=== PATIENT | female | born 1970 | race Hispanic/Latino ===

== ENCOUNTER 2018-02-22 14:55 | Emergency (ER) | payer OTHER ==
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
== END 2018-02-22 17:41 | disposition home or self-care (01) ==
LOC: ER 14:55
DX: S39.012A Strain of muscle, fascia and tendon of lower back, initial encounter (principal); V43.52XA Car driver injured in collision with other type car in traffic accident, initial encounter; Y92.219 Unspecified school as the place of occurrence of the external cause
CPT/HCPCS: 99282

== ENCOUNTER 2020-07-20 13:16 | Observation (INO) | payer OTHER ==
--- NOTE | 2020-07-20 15:01 | RAD REPORT ---
EXAM DESCRIPTION: US - Abdomen Exam Limited - 07/20/2020 2:55 pm CLINICAL HISTORY: r/o gallbladder;Abd pain Abdominal pain COMPARISON: Abdomen Exam Complete dated 12/30/2016 FINDINGS: The gallbladder demonstrates small stones and gallbladder sludge. No pericholecystic fluid or gallbladder wall thickening. The common bile duct is upper limit of normal measuring 6 mm. The liver demonstrates no findings of intrahepatic biliary dilatation. IMPRESSION: Cholelithiasis and gallbladder sludge suspected. No evidence of acute cholecystitis.
[2020-07-20 15:06] LABS: Urine Blood Trace-intact (Negative); Urine Glucose Negative (Negative); Urine Protein Negative (Negative); Urine Specific Gravity 1.015 (1.005-1.030); Urine pH 6.5 (5.0-7.0)
[2020-07-20] MEDS ORDERED: MORPHINE 2 MG/ML SYR ONE (15:12)
[2020-07-20] MEDS ORDERED: ONDANSETRON 4 MG/2 ML VIAL ONE (15:12)
[2020-07-20] MEDS ORDERED: NA CHLORIDE 0.9% 1,000 ML ONE (15:13)
[2020-07-20] MEDS ORDERED: FAMOTIDINE 20 MG/2 ML VIAL IV ONE (15:13)
--- NOTE | 2020-07-20 15:23 | RAD REPORT ---
EXAM DESCRIPTION: RAD - Chest Single View - 07/20/2020 3:14 pm CLINICAL HISTORY: COUGH Chest pain. COMPARISON: No comparisons FINDINGS: Portable technique limits examination quality. Linear subsegmental atelectasis in the right mid lung. The lungs are otherwise clear. The heart is no rmal in size. No displaced fractures.
[2020-07-20] MEDS: NA CHLORIDE 0.9% 1,000 ML IV SCH (15:30)
[2020-07-20 15:42] LABS: Basophils % 0.4 % (0-1.3); Hematocrit 40.2 % (36.0-45.0); Lymphocytes % 35.4 % (15.3-44.8); MPV 8.2 fL (7.6-11.3)
[2020-07-20 15:45] LABS: Protime INR 1.06
[2020-07-20 16:10] LABS: ALT/SGPT 35 U/L (12-78); AST/SGOT 16 U/L (15-37); Albumin 3.5 g/dL (3.4-5.0); Alkaline Phosphatase 80 U/L (45-117); BUN Blood Urea Nitrogen 10 mg/dL (7-18); Bicarbonate 28 mmol/L (21-32); Bilirubin Direct < 0.1 mg/dL (0-0.2); Bilirubin Total 0.5 mg/dL (0.2-1.0); Glucose Level 93 mg/dL (74-106); Lipase 113 U/L (73-393); Magnesium 2.2 mg/dL (1.8-2.4); NT PRO-BNP 27 pg/mL (<125); Potassium 3.6 mmol/L (3.5-5.1); Protein, Total 7.6 g/dL (6.4-8.2); Sodium Level 141 mmol/L (136-145); Troponin (Emerg Dept Use Only) < 0.02 ng/mL (0.0-0.045)
[2020-07-20] MEDS ORDERED: PIPER/TAZO/NS 3.375gm 3.375 GM/100 ML BAG ONE (16:12)
[2020-07-20 16:13] LABS: Urine Specific Gravity/Preg 1.015 (1.005-1.030)
--- NOTE | 2020-07-20 16:40 | ER ---
Nurse's Notes [facility] Name: Diana Michael Age: 49 yrs Sex: Female : 1970 Arrival Date: 07/20/2020 Time: 13:21 Bed 18 Private MD: Diagnosis: Cholelithiasis;Vomiting;Abdominal tenderness;Cholecystitis Presentation: 07/20 13:42 Chief complaint: Patient states: RUQ pain with N/V that began 4 days ago. Is worse when ss eating. Coronavirus screen: Client denies travel out of the [place] in the last 14 days. Ebola Screen: Patient denies exposure to infectious person. Patient denies travel to an Ebola-affected area in the 21 days before illness onset. Initial Sepsis Screen: Does the patient meet any 2 criteria? No. Patient's initial sepsis screen is negative. Does the patient have a suspected source of infection? No. Patient's initial sepsis screen is negative. Risk Assessment: Do you want to hurt yourself or someone else? Patient reports no desire to harm self or others. Onset of symptoms was July 16, 2020. 13:42 Method Of Arrival: Ambulatory ss 13:42 Acuity: THONG 3 ss Historical: - Allergies: 13:45 No Known Allergies; ss - Home Meds: 13:45 None [Active]; ss - PMHx: 13:45 None; ss - PSHx: 13:45 Tubal ligation; ; ss - Immunization history:: Adult Immunizations up to date. - Social history:: Smoking status: Patient denies any tobacco usage or history of. - Family history:: not pertinent. Screenin:34 Abuse screen: Denies threats or abuse. Nutritional screening: No deficits noted. vg1 Tuberculosis screening: No symptoms or risk factors identified. Fall Risk No fall in past 12 months (0 pts). No secondary diagnosis (0 pts). IV access (20 points). Ambulatory Aid- None/Bed Rest/Nurse Assist (0 pts). Gait- Normal/Bed Rest/Wheelchair (0 pts) Mental Status- Oriented to own ability (0 pts). Total Rojas Fall Scale indicates No Risk (0-24 pts). Assessment: 15:10 General: Appears in no apparent distress. comfortable, Behavior is calm, cooperative. vg1 Pain: Complains of pain in right upper quadrant Pain currently is 8 out of 10 on a pain scale. Neuro: Level of Consciousness is awake, alert, obeys commands, Oriented to person, place, time, situation. Cardiovascular: Patient's skin is warm and dry. Rhythm is sinus rhythm. Respiratory: Airway is patent Respiratory effort is even, unlabored. GI: Bowel sounds present X 4 quads. Abd is soft X 4 quads Abdomen is tender to palpation in right upper quadrant. : No signs and/or symptoms were reported regarding the genitourinary system. EENT: No signs and/or symptoms were reported regarding the EENT system. Derm: Skin is intact, is healthy with good turgor. Musculoskeletal: Circulation, motion, and sensation intact. 15:10 GI: Reports nausea, vomiting, Patient currently denies diarrhea, Parent/caregiver vg1 reports the patient having BM was this morning and 'normal'. 20:32 Reassessment: attempted to call report. vg1 Vital Signs: 13:42 BP 127 / 78; Pulse 80; Resp 16; Temp 97.9(TE); Pulse Ox 98% on R/A; Weight 96.16 kg; Height 5 ft. 2 in. (157.48 cm); Pain 8/10; 15:31 BP 125 / 98; Pulse 78; Resp 16; Pulse Ox 98% on R/A; vg1 16:00 BP 107 / 62; Pulse 75; Resp 16; Pulse Ox 99% on R/A; vg1 17:00 BP 109 / 54; Pulse 82; Resp 16; Pulse Ox 100% on R/A; vg1 18:00 BP 150 / 84; Pulse 74; Resp 16; Pulse Ox 98% on R/A; vg1 19:00 BP 102 / 62; Pulse 76; Resp 18; Pulse Ox 100% on R/A; vg1 20:00 BP 101 / 83; Pulse 82; Resp 14; Temp 98.2(O); Pulse Ox 98% on R/A; vg1 13:42 Body Mass Index 38.77 (96.16 kg, 157.48 cm) ED Course: 13:21 Patient arrived in ED. mr 13:44 Triage completed. ss 13:45 Arm band placed on right wrist. 14:41 Ender Barron MD is Attending Physician. [facility] 14:46 Freida Nelson RN is Primary Nurse. vg1 14:54 US Abdomen Limited In Process Unspecified. EDMS 15:06 Urine collected: clean catch specimen, cloudy. vg1 15:14 XRAY Chest (1 view) In Process Unspecified. EDMS 15:15 EKG done, by ED staff, reviewed by Freida Nelson RN. vg1 15:31 Initial lab(s) drawn, by in, sent to lab. Inserted saline lock: 20 gauge in right vg1 antecubital area, using aseptic technique. Blood collected. 15:34 Patient has correct armband on for positive identification. Placed in gown. Bed in low vg1 position. Call light in reach. Side rails up X 1. 16:32 Felipe Child MD is Hospitalizing Provider. [facility] 18:06 Patient moved back from [facility]. vg1 20:50 No provider procedures requiring assistance completed. Patient admitted, IV remains in vg1 place. Administered Medications: 15:30 Drug: NS 0.9% 1000 ml Route: IV; Rate: 125 ml/hr; Site: right antecubital; vg1 20:51 Follow up: IV Status: Infusion continued upon admission vg1 15:30 Drug: Zofran (Ondansetron) 4 mg Route: IVP; Site: right antecubital; vg1 18:09 Follow up: Response: No adverse reaction vg1 15:30 Drug: Pepcid (famotidine) 20 mg Route: IVP; Site: right antecubital; vg1 18:10 Follow up: Response: No adverse reaction vg1 15:31 Drug: morphine 2 mg Route: IVP; Site: right antecubital; vg1 18:09 Follow up: Response: No adverse reaction; Pain is decreased vg1 16:18 Drug: Zosyn 3.375 grams Route: IVPB; Infused Over: 60 mins; Site: right antecubital; vg1 18:09 Follow up: IV Status: Completed infusion; IV Intake: 100ml vg1 Intake: 18:09 IV: 100ml; Total: 100ml. vg1 Outcome: 16:39 Decision to Hospitalize by Provider. [facility] 18:06 Admitted to ER Hold. Please see [facility] for further documentation. vg1 20:50 Admitted to Tele accompanied by tech, via wheelchair, room 220, with chart, Report vg1 called to JULIEN Bustos 20:50 Condition: stable 20:50 Instructed on the need for admit. 21:30 Patient left the ED. iw Signatures: Dispatcher [employer] EDEnder Ramires MD MD cha Rivera, Hollie Raina Castro, RN Grace Jimenez, RN RN Freida Bailey, JULINE RN vg1
--- NOTE | 2020-07-20 16:40 | EDPHYS ---
Physician Documentation [facility] Name: Diana Michael Age: 49 yrs Sex: Female : 1970 Arrival Date: 07/20/2020 Time: 13:21 Bed 18 Private MD: ED Physician Ender Barron HPI: 07/20 15:17 This 49 yrs old Female presents to ER via Ambulatory with complaints of mani Abdominal Pain, Vomiting. 15:17 The patient presents to the emergency department with nausea, that is mild, abdominal mani pain. Onset: The symptoms/episode began/occurred 3 day(s) ago. Possible causes: gallstones. The symptoms are aggravated by food , The symptoms are alleviated by nothing. remaining still. Associated signs and symptoms: The patient has no apparent associated signs or symptoms. Severity of symptoms: At their worst the symptoms were mild moderate in the emergency department the symptoms are unchanged. The patient has experienced similar episodes in the past, multiple times. Historical: - Allergies: 13:45 No Known Allergies; ss - Home Meds: 13:45 None [Active]; ss - PMHx: 13:45 None; ss - PSHx: 13:45 Tubal ligation; ; ss - Immunization history:: Adult Immunizations up to date. - Social history:: Smoking status: Patient denies any tobacco usage or history of. - Family history:: not pertinent. ROS: 15:17 Constitutional: Negative for fever, chills, and weight loss, Eyes: Negative for injury, mani pain, redness, and discharge, ENT: Negative for injury, pain, and discharge, Neck: Negative for injury, pain, and swelling, Cardiovascular: Negative for chest pain, palpitations, and edema, Respiratory: Negative for shortness of breath, cough, wheezing, and pleuritic chest pain, Back: Negative for injury and pain, : Negative for injury, bleeding, discharge, and swelling, MS/Extremity: Negative for injury and deformity, Skin: Negative for injury, rash, and discoloration, Neuro: Negative for headache, weakness, numbness, tingling, and seizure, Psych: Negative for depression, anxiety, suicide ideation, homicidal ideation, and hallucinations, Allergy/Immunology: Negative for hives, rash, and allergies, Endocrine: Negative for neck swelling, polydipsia, polyuria, polyphagia, and marked weight changes, Hematologic/Lymphatic: Negative for swollen nodes, abnormal bleeding, and unusual bruising. 15:17 Abdomen/GI: Positive for abdominal pain, of the epigastric area and right upper quadrant. Exam: 15:17 Constitutional: This is a well developed, well nourished patient who is awake, alert, mani and in no acute distress. Head/Face: Normocephalic, atraumatic. Eyes: Pupils equal round and reactive to light, extra-ocular motions intact. Lids and lashes normal. Conjunctiva and sclera are non-icteric and not injected. Cornea within normal limits. Periorbital areas with no swelling, redness, or edema. ENT: Nares patent. No nasal discharge, no septal abnormalities noted. Tympanic membranes are normal and external auditory canals are clear. Oropharynx with no redness, swelling, or masses, exudates, or evidence of obstruction, uvula midline. Mucous membranes moist. Neck: Trachea midline, no thyromegaly or masses palpated, and no cervical lymphadenopathy. Supple, full range of motion without nuchal rigidity, or vertebral point tenderness. No Meningismus. Chest/axilla: Normal chest wall appearance and motion. Nontender with no deformity. No lesions are appreciated. Cardiovascular: Regular rate and rhythm with a normal S1 and S2. No gallops, murmurs, or rubs. Normal PMI, no JVD. No pulse deficits. Respiratory: Lungs have equal breath sounds bilaterally, clear to auscultation and percussion. No rales, rhonchi or wheezes noted. No increased work of breathing, no retractions or nasal flaring. Back: No spinal tenderness. No costovertebral tenderness. Full range of motion. Pelvic Exam: Normal external genitalia. Speculum exam with closed cervical os, no discharge or bleeding noted. Bimanual exam with normal adnexa, no adnexal or cervical motion tenderness. Normal uterus. Female : Normal external genitalia. Skin: Warm, dry with normal turgor. Normal color with no rashes, no lesions, and no evidence of cellulitis. MS/ Extremity: Pulses equal, no cyanosis. Neurovascular intact. Full, normal range of motion. Neuro: Awake and alert, GCS 15, oriented to person, place, time, and situation. Cranial nerves II-XII grossly intact. Motor strength 5/5 in all extremities. Sensory grossly intact. Cerebellar exam normal. Normal gait. Psych: Awake, alert, with orientation to person, place and time. Behavior, mood, and affect are within normal limits. 15:17 Abdomen/GI: Inspection: abdomen appears normal, Bowel sounds: normal, Palpation: moderate abdominal tenderness, in the epigastric area and right upper quadrant, Liver: tenderness, Hernia: not appreciated. 15:21 ECG was reviewed by the Attending Physician. [facility] Vital Signs: 13:42 BP 127 / 78; Pulse 80; Resp 16; Temp 97.9(TE); Pulse Ox 98% on R/A; Weight 96.16 kg; ss Height 5 ft. 2 in. (157.48 cm); Pain 8/10; 15:31 BP 125 / 98; Pulse 78; Resp 16; Pulse Ox 98% on R/A; vg1 16:00 BP 107 / 62; Pulse 75; Resp 16; Pulse Ox 99% on R/A; vg1 17:00 BP 109 / 54; Pulse 82; Resp 16; Pulse Ox 100% on R/A; vg1 18:00 BP 150 / 84; Pulse 74; Resp 16; Pulse Ox 98% on R/A; vg1 19:00 BP 102 / 62; Pulse 76; Resp 18; Pulse Ox 100% on R/A; vg1 20:00 BP 101 / 83; Pulse 82; Resp 14; Temp 98.2(O); Pulse Ox 98% on R/A; vg1 13:42 Body Mass Index 38.77 (96.16 kg, 157.48 cm) MDM: 14:41 Patient medically screened. [facility] 15:20 Differential diagnosis: Nonspecific abd pain, gastritis, cholecystitis, pancreatitis. [facility] Data reviewed: vital signs, nurses notes, lab test result(s), EKG, radiologic studies, MRI, ultrasound. Data interpreted: laboratory monitor: rate is 80 beats/min, rhythm is regular, Pulse oximetry: on room air is 98 %. Test interpretation: by ED physician or midlevel provider: ECG, plain radiologic studies. Counseling: I had a detailed discussion with the patient and/or guardian regarding: the historical points, exam findings, and any diagnostic results supporting the discharge/admit diagnosis, lab results, radiology results. 07/20 14:42 Order name: Basic Metabolic Panel; Complete Time: 16:14 mani 07/20 14:42 Order name: CBC with Diff; Complete Time: 16:01 [facility] 07/20 14:42 Order name: LFT's; Complete Time: 16:14 [facility] 07/20 14:42 Order name: Magnesium; Complete Time: 16:14 [facility] 07/20 14:42 Order name: NT PRO-BNP; Complete Time: 16:14 [facility] 07/20 14:42 Order name: PT-INR; Complete Time: 16:01 [facility] 07/20 14:42 Order name: Troponin (emerg Dept Use Only); Complete Time: 16:14 [facility] 07/20 14:42 Order name: Lipase; Complete Time: 16:14 [facility] 07/20 15:05 Order name: Urine Dipstick-Ancillary; Complete Time: 15:07 [facility] 07/20 15:11 Order name: Urine --Ancillary (enter results) 07/20 15:12 Order name: Urine --Ancillary; Complete Time: 16:14 [facility] 07/20 16:57 Order name: Urinalysis [facility] 07/20 16:57 Order name: CBC with Automated Diff [facility] 07/20 16:57 Order name: CBC with Automated Diff [facility] 07/20 13:48 Order name: US Abdomen Limited; Complete Time: 15:07 07/20 14:42 Order name: XRAY Chest (1 view); Complete Time: 16:01 [facility] 07/20 14:42 Order name: EKG; Complete Time: 14:43 [facility] 07/20 15:19 Order name: Cholangiogram [facility] 07/20 16:57 Order name: NPO [facility] 07/20 16:57 Order name: Comprehensive Metabolic Panel [facility] 07/20 16:57 Order name: Comprehensive Metabolic Panel [facility] 07/20 17:08 Order name: COVID-19 : Document "Date of Symptom Onset" if Symptomatic. 07/20 18:14 Order name: CORONAVIRUS [facility] 07/20 18:54 Order name: SARS-COV-2 RT PCR [facility] 07/20 14:42 Order name: Cardiac monitoring; Complete Time: 15:30 [facility] 07/20 14:42 Order name: EKG - Nurse/Tech; Complete Time: 15:30 [facility] 07/20 14:42 Order name: IV Saline Lock; Complete Time: 15:30 [facility] 07/20 14:42 Order name: Labs collected and sent; Complete Time: 15:29 [facility] 07/20 14:42 Order name: O2 Per Protocol; Complete Time: 15:06 [facility] 07/20 14:42 Order name: O2 Sat Monitoring; Complete Time: 15:06 [facility] 07/20 14:42 Order name: Urine Dipstick-Ancillary (obtain specimen); Complete Time: 15:05 [facility] EC:21 Rate is 66 beats/min. Rhythm is regular. QRS [place] is Normal. CT interval is normal. QRS mani interval is normal. QT interval is normal. No Q waves. T waves are Normal. No ST changes noted. Clinical impression: Normal ECG and No evidence of ischemia. Interpreted by me. Reviewed by me. Administered Medications: 15:30 Drug: NS 0.9% 1000 ml Route: IV; Rate: 125 ml/hr; Site: right antecubital; vg1 20:51 Follow up: IV Status: Infusion continued upon admission vg1 15:30 Drug: Zofran (Ondansetron) 4 mg Route: IVP; Site: right antecubital; vg1 18:09 Follow up: Response: No adverse reaction vg1 15:30 Drug: Pepcid (famotidine) 20 mg Route: IVP; Site: right antecubital; vg1 18:10 Follow up: Response: No adverse reaction vg1 15:31 Drug: morphine 2 mg Route: IVP; Site: right antecubital; vg1 18:09 Follow up: Response: No adverse reaction; Pain is decreased vg1 16:18 Drug: Zosyn 3.375 grams Route: IVPB; Infused Over: 60 mins; Site: right antecubital; vg1 18:09 Follow up: IV Status: Completed infusion; IV Intake: 100ml vg1 Disposition: 07/20/20 16:39 Hospitalization ordered by Felipe Child for Observation. Preliminary diagnosis are Cholelithiasis, Vomiting, Abdominal tenderness, Cholecystitis. - Bed requested for Telemetry/MedSurg (observation). - Status is Observation. iw - Condition is Stable. - Problem is new. - Symptoms have improved. Signatures: Dispatcher [employer] EDMS West, Caro, RN RN mw , Ender, MD MD mani Markie, Raina, RN RN iw Smirch, Grace, RN RN ss Omar, Freida, RN RN vg1 Corrections: (The following items were deleted from the chart) 15:11 15:07 Abdomen Pelvis W Con+CT.RAD.BRZ ordered. EDMS EDMS 20:02 16:39 Hospitalization Ordered by Felipe Child MD for Observation. Preliminary mw diagnosis is Cholelithiasis; Vomiting; Abdominal tenderness; Cholecystitis. Bed requested for Telemetry/MedSurg (observation). Status is Observation. Condition is Stable. Problem is new. Symptoms have improved. mani 21:30 20:02 07/20/2020 16:39 Hospitalization Ordered by Felipe Child MD for Observation. iw Preliminary diagnosis is Cholelithiasis; Vomiting; Abdominal tenderness; Cholecystitis. Bed requested for Telemetry/MedSurg (observation). Status is Observation. Condition is Stable. Problem is new. Symptoms have improved. mw
--- NOTE | 2020-07-20 16:52 | P.HP ---
Certification for Inpatient Patient admitted to: Observation With expected LOS: <2 Midnights Practitioner: I am a practitioner with admitting privileges, knowledge of patient current condition, hospital course, and medical plan of care. Services: Services provided to patient in accordance with Admission requirements found in Title 42 Section 412.3 of the Code of Federal Regulations Patient History Date of Service: 07/20/20 Reason for admission: Abdominal Pain History of Present Illness: 49 yrs old Female with no significant past medical history came to ER with abdominal pain and nausea and vomiting which started 3 days ago and has been progressively worsening. Located in right upper quadrant and epigastric region. 4/10 in severity intermittent aching type with no radiation, worsens with food . Denies any fever or chills no sick contacts she had similar episodes in the past multiple times and was diagnosed with gallstones Patient was assessed in the ER and vitals were stable and the workup was consistent with gallstones with possible cholelithiasis and mild dilatation of the CBD up to 6 mm size. Patient was admitted for further workup and surgical consult Allergies No Known Allergies Allergy (Unverified 03/17/17 18:38) Home medications list reviewed: Yes - Past Medical/Surgical History Past Medical History: Reviewed- Non-Contributory Past Surgical History: Reviewed- Non-Contributory - Family History Family History: Reviewed- Non-Contributory - Social History Smoking Status: Never smoker Review of Systems 10-point ROS is otherwise unremarkable Physical Examination - Vital Signs Temperature: 98.2 F Blood Pressure: 132/78 Pulse: 78 Respirations: 18 Pulse Ox (%): 96 - Physical Exam General: Alert, In no apparent distress, Oriented x3, Obese HEENT: Atraumatic, Normocephalic Neck: Supple, 2+ carotid pulse no bruit Respiratory: Clear to auscultation bilaterally, Normal air movement Cardiovascular: Regular rate/rhythm, Normal S1 S2 Capillary refill: <2 Seconds Gastrointestinal: Soft and benign, W/out hepatosplenomegaly, Tenderness Musculoskeletal: No clubbing, No swelling Integumentary: No rashes, No breakdown Neurological: Normal speech, Normal strength at 5/5 x4 extr Lymphatics: No axilla or inguinal lymphadenopathy - Studies Laboratory Data (last 24 hrs) 07/20/20 15:23: PT 12.2, INR 1.06 07/20/20 15:23: WBC 8.50, Hgb 13.6, Hct 40.2, Plt Count 296 07/20/20 15:23: Sodium 141, Potassium 3.6, BUN 10, Creatinine 0.61, Glucose 93, Magnesium 2.2, Total Bilirubin 0.5, AST 16, ALT 35, Alkaline Phosphatase 80, Lipase 113 Assessment and Plan - Problems (Diagnosis) (1) Colic, biliary Current Visit: Yes Status: Acute Plan: Monitor closely Will keep NPO IV fluids Pain control Surgical consult (2) Cholelithiasis Current Visit: Yes Status: Chronic Plan: Patient has a history of recurrent biliary colic Pain control surgical consult for possible lap david Start on antibiotics empirically for cholecystitis (3) Nausea and vomiting Current Visit: Yes Status: Acute Plan: NPO for now IV fluids Zofran p.r.n. (4) Dilated cbd, acquired Current Visit: Yes Status: Acute Plan: Ultrasound was consistent with CBD dilation up to 6 mm or will will get an MRCP GI consult if MRCP shows CBD dilation and possible CBD stone (5) Obesity Current Visit: Yes Status: Chronic Plan: Advised lifestyle modification - Advance Directives Does patient have a Living Will: No Does patient have a Durable POA for Healthcare: No Time Spent Managing Pts Care (In Minutes): 48
[2020-07-20] MEDS ORDERED: ONDANSETRON 4 MG/2 ML VIAL IV PRN (16:53)
[2020-07-20] MEDS ORDERED: ACETAMINOPHEN 500 MG TAB PO PRN (16:53)
[2020-07-20] MEDS ORDERED: MORPHINE 2 MG/ML SYR IV PRN (17:26)
[2020-07-20] MEDS: CEFTRIAXONE/SWI 1gm 1 GM/10 ML SYR IVP SCH (18:00)
[2020-07-20 18:39] VITALS: BMI 41.3
[2020-07-20] MEDS ORDERED: CEFTRIAXONE/SWI 1gm 1 GM/10 ML SYR ONE (18:46)
--- NOTE | 2020-07-20 19:51 | RAD REPORT ---
EXAM DESCRIPTION: MRI - Cholangiogram - 07/20/2020 5:59 pm CLINICAL HISTORY: cholelithiasis Abdominal pain COMPARISON: Abdomen Exam Limited dated 07/20/2020 FINDINGS: Three-dimensional MRCP was performed using maximum intensity projection reconstruction on the same work station. No intrahepatic biliary tree dilatation is seen. The common bile duct is normal caliber without evide nce of retained stone, stricture or mass. The pancreatic duct is not pathologically dilated. The gallbladder is distended. Limited T2 sequences through the abdomen demonstrates no bulky adenopathy, significant free fluid or abscess. IMPRESSION: Negative MR cholangiogram. Distended gallbladder.
[2020-07-21] MEDS: METRONIDAZOLE 500mg IVPB 500 MG/100 ML BAG IV SCH ×2 (00:56→08:01)
[2020-07-21] MEDS: NA CHLORIDE 0.9% 1,000 ML IV SCH ×2 (00:59→12:41)
[2020-07-21 06:03] LABS: Absolute Lymphocytes (CBC) 2.4 K/uL (0.7-4.9); Basophils % 0.3 % (0-1.3); Hematocrit 38.6 % (36.0-45.0); Lymphocytes % 33.6 % (15.3-44.8); MPV 8.1 fL (7.6-11.3); RBC Red Blood Cell Count 4.53 M/uL (3.86-4.86)
[2020-07-21 06:10] LABS: ALT/SGPT 34 U/L (12-78); AST/SGOT 16 U/L (15-37); Albumin 3.2 g/dL (3.4-5.0); Alkaline Phosphatase 70 U/L (45-117); BUN Blood Urea Nitrogen 8 mg/dL (7-18); Bicarbonate 31 mmol/L (21-32); Bilirubin Total 0.5 mg/dL (0.2-1.0); Glucose Level 125 mg/dL (74-106); Potassium 3.9 mmol/L (3.5-5.1); Protein, Total 6.9 g/dL (6.4-8.2); Sodium Level 142 mmol/L (136-145)
[2020-07-21] MEDS ORDERED: KCL 20 MEQ/100 mL IVPB 20 MEQ/100 ML BAG IV SCH (07:00)
--- NOTE | 2020-07-21 07:57 | EKG ---
Test Date: 2020-07-20 Test Time: 15:13:55 Disk Sharpener: ZEESHAN MEASUREMENT RESULTS: Intervals: Rate: 66 CT: 164 QRSD: 64 QT: 410 QTc: 429 Dunbar: P: 59 CT: 164 QRS: 75 T: 41 INTERPRETIVE STATEMENTS: Normal sinus rhythm Normal ECG No previous ECG available for comparison Electronically Signed On 07-21-20 07:56:26 CDT by Ezio Cedeno
[2020-07-21] MEDS: CEFTRIAXONE/SWI 1gm 1 GM/10 ML SYR IVP SCH (08:02)
[2020-07-21 09:36] VITALS: O2SAT 96
[2020-07-21 14:04] VITALS: BP 127/78; TEMP 97
--- NOTE | 2020-07-21 15:20 | CON ---
Date of Consultation: 07/21/2020 Brief History Of Present Illness: The patient is a 49-year-old female with no past medical history, but poor followup with no primary care doctor, who presents with abdominal pain and nausea, vomiting, which started 3 days prior and it became progressively worse. Her pain was located predomin antly in the epigastrium right upper quadrant, 4/10 in intensity. A significant improvement since be ing in the ER and worse with food, particular greasy meals which is the mainstay of her meals at this point. She has had multiple episodes before in the past, it was diagnosed in the past with erin es. Past Medical History: Negative. Past Surgical History: Denies. Allergies: NO KNOWN DRUG ALLERGIES. Social History: She denies smoking, alcohol, recreational drug use. Review of Systems: Ten-point review of systems other than HPI, denies. Physical Examination: Vital Signs: At the time of examination, her vital signs were blood pressure of 118/71, heart rate 6 6, respiratory rate 18, temperature 97.6. Oxygen saturation 97% on room air. General: She is awake, alert, and oriented. Psychiatric: She is appropriate. Conversive. HEENT: Normocephalic. Sclerae icteric. Mucous is moist. Oropharynx clear. Neck: Supple without JVD. Chest: Normal expansion and excursion. Cardiovascular: Regular rate and rhythm. Pulmonary: Clear to auscultation bilaterally. Abdomen: Soft, nontender, nondistended. No rebound. No guarding. No focal peritonitis. Lopez si gn was negative. Extremities: No clubbing, cyanosis, edema. Skin: Warm and dry. Laboratory Data: White blood cell count 7.1, hemoglobin 12.9, hematocrit of 38.6, platelet count is 291. Her PT 12.2, INR 1.06. Her sodium 142, potassium 3.9, chloride 109, carbon dioxide 31, BUN 8, creatinine 0.5, glucose is 125. Her calcium is 8.3, magnesium is 2.2, total bilirubin 0.5, direct com ponent is less than 0.1. AST 16, ALT 34, alkaline phosphatase is 70. Her lipase is 113 on admission. She had imaging performed, which included an abdominal ultrasound, officially read as cholelithiasi s and gallbladder sludge suspected. No evidence of acute cholecystitis. No pericholecystic fluid or gallbladder wall thickening. The common bile duct is upper limit at normal measuring 6 mm. Liver d emonstrates no findings of intrahepatic ductal dilatation. She had a chest x-ray performed which was officially read as linear subsegmental atelectasis in the right mid lung. Lungs otherwise clear. H eart is normal in size. No displaced fractures. She had an MRCP performed as well, which was offici ally read as negative MR cholangiogram, distended gallbladder. No intrahepatic biliary tree dilatati on seen. Common bile duct is normal caliber without evidence of retained stone, stricture or mass. The pancreatic duct is not pathologically dilated. The gallbladder is distended. Assessment And Plan: This is a 49-year-old female who came in with possible biliary colic, who is no w completely asymptomatic. 1.IV fluid hydration. 2.Serial abdominal exams. 3.I recommend starting clear liquid diet and discharge from the hospital at this point and have foll ow up with me as an outpatient so that she can have an elective cholecystectomy should she choose to proceed with that at this point. I have explained the risks, benefits, alternatives, and given the p atient a gallbladder diet. She agrees to proceed as indicated. She would like preferably to not have gallbladder surgery she states and would like to see if she can prevent the surgery and will follow up with me in my clinic to discuss her options. Thank you this interesting consult. NAREN/SU Voice ID: [id number] Report ID: [id number]
--- NOTE | 2020-08-06 04:55 | P.DS ---
Discharge Date: 07/21/20 Disposition: ROUTINE DISCHARGE Discharge Condition: GOOD Reason for Admission: Abdominal Pain Brief History of Present Illness: Patient is a 49 yrs old Female with no significant past medical history came to ER with abdominal pain and nausea and vomiting which started 3 days ago and has been progressively worsening. Located in right upper quadrant and epigastric region. 4/10 in severity intermittent aching type with no radiation, worsens with food . Patient states that she has had similar episodes in the past multiple times and was diagnosed with gallstones Patient was assessed in the ER and vitals were stable and the workup was consistent with gallstones with possible cholelithiasis and mild dilatation of the CBD up to 6 mm size. Patient was admitted for further workup and surgical consult Hospital Course: Patient's symptoms improved and diagnostic studies were unremarkable. Patient's MRCP was unremarkable. At this time, patient is feeling better and is tolerating diet. Patient is stable for discharge home. Vital Signs/Physical Exam: Temp Pulse Resp BP Pulse Ox 97.0 F 77 19 127/78 97 07/21/20 12:00 07/21/20 12:00 07/21/20 12:00 07/21/20 12:00 07/21/20 12:00 General: Alert, In no apparent distress, Oriented x3 Laboratory Data at Discharge: WBC 7.10 K/uL (4.3-10.9) D 07/21/20 05:39 Hgb 12.9 g/dL (12.0-15.0) 07/21/20 05:39 Hct 38.6 % (36.0-45.0) 07/21/20 05:39 Plt Count 291 K/uL (152-406) 07/21/20 05:39 PT 12.2 SECONDS (9.5-12.5) 07/20/20 15:23 INR 1.06 07/20/20 15:23 Sodium 142 mmol/L (136-145) 07/21/20 05:39 Potassium 3.9 mmol/L (3.5-5.1) 07/21/20 05:39 BUN 8 mg/dL (7-18) 07/21/20 05:39 Creatinine 0.59 mg/dL (0.55-1.3) 07/21/20 05:39 Glucose 125 mg/dL (74-106) H 07/21/20 05:39 Magnesium 2.2 mg/dL (1.8-2.4) 07/20/20 15:23 Total Bilirubin 0.5 mg/dL (0.2-1.0) 07/21/20 05:39 AST 16 U/L (15-37) 07/21/20 05:39 ALT 34 U/L (12-78) 07/21/20 05:39 Alkaline Phosphatase 70 U/L (45-117) 07/21/20 05:39 Lipase 113 U/L (73-393) 07/20/20 15:23 Home Medications: Ciprofloxacin HCl 250 mg PO BID #10 tablet 07/21/20 Hydrocodone 10/APAP 325 [[place] 10/325] 1 tab PO Q6H PRN #30 tab 07/21/20 metroNIDAZOLE [Flagyl] 500 mg PO Q8H #20 tablet 07/21/20 New Medications: Ciprofloxacin HCl 250 mg PO BID #10 tablet metroNIDAZOLE [Flagyl] 500 mg PO Q8H #20 tablet Hydrocodone 10/APAP 325 [[place] 10/325] 1 tab PO Q6H PRN #30 tab PRN Reason: Pain Physician Discharge Instructions: PROBLEM: Cholelithiasis GOAL: Clear understanding of disease process INSTRUCTIONS: Diet: Regular Activity: Fall precautions OK TO DC IV AND DC HOME FOLLOW-UP WITH PRIMARY CARE PROVIDER IN 1-2 WEEKS FOLLOW-UP WITH Surgery IN 1-2 WEEKS RETURN TO THE ER IF symptoms worsen CALL or TEXT DR. SCANLON AT [phone] IF ANY QUESTIONS REGARDING HOSPITAL STAY. PLEASE CALL THE FLOOR AT [phone] IF ANY MEDICATION OR NURSING QUESTIONS. Diet: Regular Activity: Fall precautions Followup: Ricardo Garcia MD [ACTIVE - CAN ADMIT] - NONE,NONE [Primary Care Provider] - Time spent managing pt's care (in minutes): 35
== END 2020-07-21 13:01 | disposition home or self-care (01) ==
LOC: ER 13:16 → ERHOLD 16:54 → 2ND 20:51
PROVIDERS: ADMIT Family Medicine; ATTEND Hospitalist
DX: K80.20 Calculus of gallbladder without cholecystitis without obstruction (principal); K83.8 Other specified diseases of biliary tract; E66.9 Obesity, unspecified; Z68.38 Body mass index [BMI] 38.0-38.9, adult; Z20.822 Contact with and (suspected) exposure to COVID-19
CPT/HCPCS: 96365; 96361; 93005; 85025 ×2; 80048; 36415; 83735; 81025; 85610; 82947; 80076; 81003; 84484; 83690; 80053; 83880; 71045; 74181; 76705; 94760 ×2; 96375; 99285; 96366; U0003; J3480; J2543; J2270; J0696 ×2; J7030 ×2; J2405; G0378